=== PATIENT | female | born 1955 | race Caucasian/White ===

== ENCOUNTER 2016-08-19 10:14 | Emergency (ER) | payer OTHER ==
[~2016-08-19] VITALS: Wt 100.0 kg
[2016-08-19] MEDS ORDERED: ACETAMINOPHEN 325 MG TAB PO ONE (11:00)
--- NOTE | 2016-08-19 11:35 | RADRPT ---
PROCEDURE: CT Brain without. CLINICAL INDICATION: Trauma, pain. TECHNIQUE: A CT of the brain was performed on multidetector high-resolution CT scanner utilizing a xial sections from the skull base through the vertex without contrast. The scan was reviewed in sof t tissue brain and high frequency resolution bone algorithm windows. Images were reviewed on a high -resolution PACS workstation. One or more the following does reduction techniques were utilized: Aut omated exposure control, adjustment of the mA/ or kV according to patient's size, or use of iterativ e reconstruction technique. The exam CTDI = 42.93 mGy and the DLP = the 720.23 mGy-cm. COMPARISON: None available. FINDINGS: The ventricles and sulci are mildly prominent indicative of volume loss. There is no intracranial he morrhage, mass effect or midline shift. No abnormal intra-axial or extra-axial fluid collections ar e seen. The sunshine/white matter differentiation is preserved. There are mild scattered foci of hypoattenuation in the white matter, which are nonspecific in etiol ogy but likely reflect chronic small vessel ischemic changes. There are mild intracranial vascular calcifications consistent with atherosclerosis. The visualized paranasal sinuses are essentially mau ar. IMPRESSION: 1. No acute intracranial hemorrhage, transcortical infarction or mass effect. 2. Mild intracranial atherosclerosis and chronic small vessel ischemic changes. 3. Mild generalized cerebral volume loss. RPTAT: UU .Uriel Angulo MD, MD Date Time Electronically viewed and signed by .Uriel Angulo MD, MD on 08/19/2016 11:35 .N/
--- NOTE | 2016-08-19 11:52 | RADRPT ---
PROCEDURE: CT cervical spine without contrast CLINICAL INDICATION: Trauma. Neck pain. TECHNIQUE: CT scan of the cervical spine [facility] No IV contrast was administered. Coronal and sagittal reformatted images were obtained from th e axial source images. Images were reviewed on a high-resolution PACS workstation. One or more the f ollowing does reduction techniques were utilized: Automated exposure control, adjustment of the mA/ or kV according to patient's size, or use of iterative reconstruction technique. Exam CTDI = 22.12 m Gy and the DLP = 428.4 mGy-cm. COMPARISON: None available. FINDINGS: There is reversal of normal cervical lordosis centered at C4-C5. Alignment remains intact. No acute fracture or dislocation is seen. The vertebral body heights are preserved. No mass, hematoma, or o ther soft tissue abnormality is seen. There are multilevel mild degenerative changes of the cervical spine, manifested by osteophytosis an d disc height narrowing, most prominent at C5-C6 and C6-C7. Posterior disk osteophyte complexes cont ribute to mild spinal canal narrowing at C4-C5 through C6-C7. IMPRESSION: 1. Reversal of normal cervical lordosis centered at C4-C5. 2. No acute fracture or traumatic subluxation. 3. Multilevel mild degenerative changes of the cervical spine, most prominent at C5-C6 and C6-C7. 4. Posterior disk osteophyte complexes contribute to mild spinal canal narrowing at C4-C5 through C 6-C7. RPTAT: UU .Uriel Angulo MD, Date Time Electronically viewed and signed by .Uriel Angulo MD, MD on 08/19/2016 11:52 .N/
[2016-08-19] MEDS ORDERED: TRAM50TA2 PO (12:19)
[2016-08-19] MEDS ORDERED: METH500T PO (12:19)
--- NOTE | 2016-08-19 12:22 | ERD ---
ER Documentation Chief Complaint Date/Time DATE: 08/19/16 TIME: 12:21 Chief Complaint PAIN ON RIGHT SIDE OF NECK, SHOULDER HEAD S/P GLF, NO KO HPI This 52-year-old male yesterday fell off a chair that was incompletely unfolded. She fell backwards and hit the right side of her head. She denies loss of consciousness, vomiting, new visual changes. Her main complaint is pain in the right side of her neck and occipital headache. She denies any bowel or bladder incontinence or weakness. ROS All systems reviewed and are negative except as per history of present illness. Medications Home Meds Active Scripts Methocarbamol* (Robaxin*) 500 Mg Tab, 500 MG PO Q6, #15 TAB Prov:ELSIE POWELL MD 08/19/16 Tramadol HCl (Tramadol HCl) 50 Mg Tablet, 50 MG PO Q4 Y for PAIN, #15 TAB Prov:ELSIE POWELL MD 08/19/16 Allergies Allergies: Coded Allergies: cimetidine (Verified Allergy, Mild, 08/19/16) lisinopril (Verified Allergy, Mild, 08/19/16) losartan (Verified Allergy, Mild, 08/19/16) PMhx/Soc History of Surgery: Yes (tonsillectomy; breast surgery) Hx Cardiac Disorders: Yes (hypertension; high choleterol) Hx Miscellaneous Medical Probl: Yes (cancer; cataract) Hx Alcohol Use: Yes Hx Substance Use: Yes Hx Tobacco Use: Yes Smoking Status: Never smoker Physical Exam Vitals Vital Signs Date Time Temp Pulse Resp B/P Pulse Ox O2 Delivery O2 Flow Rate FiO2 08/19/16 10:17 98.2 81 17 129/84 96 Physical Exam Const: [] Alert, not ill-appearing Head: Atraumatic Eyes: Normal Conjunctiva ENT: Normal External Ears, Nose and Mouth. Neck: Full range of motion..~ No meningismus. Mild tenderness in the right cervical paraspinous muscles. No midline tenderness or deformities. Resp: Clear to auscultation bilaterally Cardio: Regular rate and rhythm, no murmurs Abd: Soft, non tender, non distended. Normal bowel sounds Skin: No petechiae or rashes Back: No midline or flank tenderness Ext: No cyanosis, or edema Neur: Awake and alert. No appreciable focal neurologic deficits. Cranial nerves II through XII grossly intact Psych: Normal Mood and Affect Results 24 hrs Current Medications Medications (Trade) Dose Ordered Sig/Justine Route PRN Reason Start Time Stop Time Status Last Admin Dose Admin Acetaminophen (Tylenol Tab) 650 mg ONCE ONCE PO 08/19/16 11:00 08/19/16 11:01 DC 08/19/16 10:56 Procedures/MDM CT brain and cervical spine shows degenerative changes and volume loss without acute findings. Patient was given Tylenol for pain here in the ED and was treated with tramadol and Robaxin at home. Patient has signs and symptoms of cervical strain and head injury without evidence of bleeding, fracture, neurologic deficit. Patient was advised to follow-up with primary doctor this week return to the ER for new or worsening symptoms. The patient was stable with no new complaints during the ER course. Clinically, there is no current evidence to suggest meningitis, sepsis, acute abdomen, pneumonia, acute coronary syndrome, pulmonary embolism, or any other emergent condition appearing to require further evaluation or hospitalization. The patient should certainly return for any new or worsening symptoms per the aftercare instructions. They should otherwise follow-up with her primary care doctor for reevaluation this week. Departure Diagnosis: Primary Impression: Neck sprain Encounter type: initial encounter Qualified Code: S13.9XXA - Neck sprain, initial encounter Additional Impressions: Trauma Head injury Encounter type: initial encounter Qualified Code: S09.90XA - Head injury, initial encounter Fall Encounter type: initial encounter Qualified Code: W19.XXXA - Fall, initial encounter Condition: Stable Patient Instructions: HEAD INJURY, No Wake-Up (Adult), Neck Sprain/Strain Additional Instructions: No acute findings seen on CT scans. Recheck with primary doctor or for new or worsening symptoms. ELSIE POWELL MD Aug 19, 2016 12:22
[2016-08-19 12:35] VITALS: BP 129/76; PULSE 76; RESP 16; TEMP 98.1
== END 2016-08-19 12:36 | disposition home or self-care (01) ==
LOC: FTE 10:14
DX: S13.4XXA Sprain of ligaments of cervical spine, initial encounter (principal); S09.90XA Unspecified injury of head, initial encounter; I10 Essential (primary) hypertension; R51 Headache; W07.XXXA Fall from chair, initial encounter; Y92.9 Unspecified place or not applicable; Z85.9 Personal history of malignant neoplasm, unspecified
CPT/HCPCS: 70450; 72125